=== PATIENT | female | born 1955 | race Caucasian/White ===

== ENCOUNTER 2018-01-03 14:27 | Outpatient (CLI) | payer OTHER ==
--- NOTE | 2018-01-03 14:48 | XRAY Report ---
Procedure Date: 01/03/2018 Accession Number: [id number] / [id number] Procedure: XRS - Chest 2 View X-Ray CPT Code: 88529 FULL RESULT: EXAM: Chest 2 View X-Ray DATE: 01/03/2018 2:40 PM CLINICAL HISTORY: NEW ONSET PAIN IN THE 3 4TH FRONTAL RIB LEFT CHON COMPARISON: None. TECHNIQUE: 2 views. FINDINGS: Lungs/Pleura: No focal opacities evident. No pneumothorax or pleural effusion. Normal volumes. Mediastinum: Heart and mediastinal contours are unremarkable. Other: None. IMPRESSION: Normal 2-view chest radiography. [facility]
== END 2018-01-03 14:28 | disposition home or self-care (01) ==
LOC: DI.S 14:27
PROVIDERS: ATTEND Nurse Practitioner Family
DX: R07.82 Intercostal pain (principal)
CPT/HCPCS: 71046

== ENCOUNTER 2018-01-04 07:28 | Outpatient (CLI) | payer OTHER ==
[2018-01-04 11:15] LABS: BASOPHILS # (AUTO) 0.1 10^3/uL (0.0-0.1); EOSINOPHILS # (AUTO) 0.2 10^3/uL (0.0-0.7); EOSINOPHILS % (AUTO) 4.2 %; HGB - HEMOGLOBIN 13.7 g/dL (12.0-16.0); LYMPHOCYTES # (AUTO) 1.6 10^3/uL (1.5-3.5); LYMPHOCYTES % (AUTO) 36.9 %; MEAN CORPUSCULAR HEMOGLOBIN 32.1 pg (27.0-31.0); MEAN CORPUSCULAR HGB CONC 32.9 g/dL (32.0-36.0); MEAN CORPUSCULAR VOLUME 97.4 fL (81.0-99.0); MEAN PLATELET VOLUME 9.5 fL (7.9-10.8); MONOCYTES # (AUTO) 0.4 10^3/uL (0.0-1.0); MONOCYTES % (AUTO) 10.1 %; NEUTROPHILS # (AUTO) 2.1 10^3/uL (1.5-6.6); NEUTROPHILS % (AUTO) 46.8 %; PLT - PLATELET COUNT 218 10^3/uL (130-450); RED BLOOD COUNT 4.26 10^6/uL (4.20-5.40); RED CELL DISTRIBUTION WIDTH 13.8 % (12.0-15.0); WHITE BLOOD COUNT 4.4 x10^3/uL (4.8-10.8)
[2018-01-04 11:44] LABS: ALBUMIN/GLOBULIN RATIO 1.4 (1.0-2.2); ALKALINE PHOSPHATASE 41 IU/L (42-121); ALT ALANINE AMINOTRANSFERASE 24 IU/L (10-60); AST ASPARTATE AMINOTRANSFERASE 29 IU/L (10-42); BILIRUBIN,TOTAL 1.2 mg/dL (0.2-1.0); BUN - BLOOD UREA NITROGEN 17 mg/dL (6-20); CALCIUM 9.1 mg/dL (8.5-10.3); CARBON DIOXIDE - CO2 27 mmol/L (21-32); CHLORIDE 104 mmol/L (101-111); CHOL/HDL RATIO 2.6 (<4.4); CHOLESTEROL 259 mg/dL; CREATININE 0.8 mg/dL (0.4-1.0); GFR - MDRD 73 (>89); GLUCOSE 96 mg/dL (70-100); HDL CHOLESTEROL 99 mg/dL; LDL CHOLESTEROL,CALCULATED 151 mg/dL; LDL/HDL RATIO 1.5 (<4.4); SODIUM 138 mmol/L (135-145); TOTAL PROTEIN 6.8 g/dL (6.7-8.2); VLDL CHOLESTEROL 9 mg/dL
== END 2018-01-04 07:29 | disposition home or self-care (01) ==
LOC: LAB.F 07:28
PROVIDERS: ATTEND Nurse Practitioner Family
DX: Z00.00 Encounter for general adult medical examination without abnormal findings (principal); E55.9 Vitamin D deficiency, unspecified; E78.5 Hyperlipidemia, unspecified
CPT/HCPCS: 36415; 80053; 80061; 82652; 83721; 85025

== ENCOUNTER 2023-11-01 07:13 | Day surgery (SDC) | payer MEDICARE, BC ==
[2023-11-01] MEDS: LACTATED RINGERS 1,000 ML IV ONE ×2 (07:37→09:04)
[2023-11-01] MEDS: PROPARACAINE 0.5% OPHTH DROPS 15 ML ONE (07:46)
[2023-11-01] MEDS: PHENYLEPHRINE 2.5% OPHTH 2 ML DROPS ONE (07:47)
[2023-11-01] MEDS: KETOROLAC 0.45% OPHTH DROPS ONE (07:49)
--- NOTE | 2023-11-01 07:58 | ANESTHESIA ---
Pre-Anesthesia VS, & Labs - Diagnosis left cataract - Procedure left cataract extraction Vital Signs: Temp Pulse Resp BP Pulse Ox O2 Flow Rate 36.5 C 50 L 14 108/69 100 11/01/23 07:38 11/01/23 07:38 11/01/23 07:38 11/01/23 07:38 11/01/23 07:38 Height: 5 ft 3 in Weight (kg): 61.2 kg Body Mass Index: 23.8 BMI Classification: Normal - NPO >8 hours - Is Patient ?: No Home Medications and Allergies Home Medications: Ambulatory Orders Acyclovir 800 mg PO DAILY 10/31/23 Acyclovir 800 mg PO DAILY 10/31/23 Allergies/Adverse Reactions: Allergies Allergy/AdvReac Type Severity Reaction Status Date / Time NSAIDS (Non-Steroidal Allergy Respiratory Verified 10/31/23 12:15 Anti-Inflamma Anes History & Medical History - Anesthetic History Anesthesia Complications: reports: No previous complications - Medical History Cardiovascular: reports: None Pulmonary: reports: None Gastrointestinal: reports: Colon polyps Urinary: reports: None Musculoskeletal: reports: None Endocrine/Autoimmune: reports: None Skin: reports: Herpes zoster - Surgical History Eyes Ears Nose Throat (EENT): reports: Tonsil/Adenoidectomy Exam General: Alert, Oriented x3 Dental: WNL Mouth Opening: Greater than 4 Fingerbreadths Neck Mobility: Limited Mallampati classification: II Thyromental Distance: greater than 6 cm Respiratory: Lungs clear Cardiovascular: Regular rate Plan Anesthesia Type: MAC Consent for Procedure(s) Verified and Reviewed: Yes Code Status: Attempt Resuscitation ASA classification: 2-Mild systemic disease Is this case an emergency?: No
[2023-11-01] MEDS ORDERED: MIDAZOLAM 2 MG/2 ML VIAL ONE (08:09)
[2023-11-01] MEDS ORDERED: fentaNYL 100 MCG/2 ML VIAL ONE (08:09)
[2023-11-01] MEDS ORDERED: TRIAMCIN/MOXIFLOX OPHTHALMIC 0.6 ML VIAL IO ONE (08:11)
[2023-11-01] MEDS ORDERED: BSS/LIDOCAINE/EPINEPHRINE 1 ML VIAL ONE (08:11)
[2023-11-01] MEDS ORDERED: BRIMONIDINE 0.2% OPHTH DROPS 5 ML ONE (08:11)
[2023-11-01] MEDS ORDERED: EPINEPHrine 1 MG/ML AMP ONE (08:11)
[2023-11-01] MEDS ORDERED: TIMOLOL 0.5% OPHTH DROPS ONE (08:11)
[2023-11-01] MEDS: EPINEPHrine 1 MG/ML AMP IR ONE (08:27)
[2023-11-01] MEDS: BRIMONIDINE 0.2% OPHTH DROPS 5 ML OPTH ONE (08:27)
[2023-11-01] MEDS: VANCOMYCIN OPHTH (TOPICAL) 10 MG/ML SYRINGE TOP ONE (08:28)
[2023-11-01] MEDS: PROPARACAINE 0.5% OPHTH DROPS 15 ML EACHEYE ONE (08:28)
[2023-11-01] MEDS: BSS/LIDOCAINE/EPINEPHRINE 1 ML SYRINGE IO ONE (08:28)
[2023-11-01] MEDS: TIMOLOL 0.5% OPHTH DROPS OPTH ONE (08:28)
[2023-11-01] MEDS: TRIAMCIN/MOXIFLOX OPHTHALMIC 0.6 ML VIAL IO ONE (08:28)
--- NOTE | 2023-11-01 09:05 | OPERATIVE REPORT ---
Operative Report - Other Other Information/Narrative: Date of Surgery: 11/01/23 Preop Dx: Visually significant cataract left eye. This was the first cataract surgery. Postop Dx: Same Procedure: Phacoemulsification with posterior chamber toric intraocular lens implant left eye Surgeon: Dr. Raudel Morales Anesthesia: Monitored anesthesia care Complications: None Operative Indications: This is a 68-year-old F with progressive vision loss in the left eye due to 2+ nuclear sclerotic and 3+ cortical cataract. Best cor rected visual acuity was 20/25 with glare to 20/500 vision in the left eye. Indications for surgery were: - Overall decrease in vision - Difficulty reading - Difficulty seeing words, closed captions, or game scores on TV - Difficulty seeing street signs - Difficulty driving in low light or at night - Difficulty driving at night because of headlights from other vehicles - Difficulty with glare or bright lights in any situation The patient was consented at length concerning the risks and benefits of cataract surgery after which the patient expressed a desire to proceed with surgery. Operative Procedure: The patients cornea was marked in the pre-surgical area to indicate the axis for the toric intraocular lens. The patient was taken into OR#3 and placed under monitored anesthesia care. A surgical time-out was conduc luis alberto confirming correct patient, correct procedure, and correct surgical site. The patient was given topical anesthesia and then prepped and draped in the usual sterile fashion. The eye was entered at the 6 and 3 oclock positions. Intracameral Shugarcaine was injected into the anterior chamber followed by a dispersive viscoelastic. A continuous-tear curvilinear capsulorhexis was performed. The nucleus was hydrodissected and phacoemulsified. The cortex was evacuated using automated infusion and aspiration. A cohesive viscoelastic was injected into the capsular bag and a 26.0 diopter toric intraocular lens was inserted into the bag and rotated to axis 003. Infusion and aspiration were used to evacuate the viscoelastic materials from the eye and the IOL was verified to remain on axis. The wounds were hydrated and the eye inflated to physiologic pressure using balanced salt solution. Approximately 0.25ml of a mixture of triamcinolone and moxifloxacin was injected trans-sclerally into the vitreous in the inferotemporal quadrant using a 30 gauge cannula. An additional 0.25ml of a mixture of triamcinolone and moxifloxacin was injected subconjunctivally in the superior quadrant for infection and inflammation prophylaxis. Wound integrity was checked with Weck-Anahi sponges and the IOL axis was once again verified to be on the correct axis. The patient was taken from the operating room in good condition and given post-op instructions.
[2023-11-01 09:15] VITALS: BP 103/76; O2SAT 96
--- NOTE | 2023-11-01 14:11 | ANESTHESIA POST OP EVALUATION ---
Anesthesia Post Eval - Post Anesthesia Eval Vitals: Last Vital Signs Temp 36.6 C 11/01/23 09:04 Pulse 58 L 11/01/23 09:04 Resp 18 11/01/23 09:04 BP 103/76 11/01/23 09:04 Pulse Ox 96 11/01/23 09:04 O2 Flow Rate CV Function Including HR & BP: Stable Pain Control: Satisfactory Nausea & Vomiting: Negative Mental Status: Baseline Respiratory Status: Airway Patent Hydration Status: Satisfactory Anesthesia Complications: None
== END 2023-11-01 07:14 | disposition home or self-care (01) ==
LOC: SDS 07:13
PROVIDERS: ATTEND Ophthalmology
DX: H25.812 Combined forms of age-related cataract, left eye (principal)
CPT/HCPCS: 66984; A9270; J3490; J7120; V2632; V2787

== ENCOUNTER 2023-12-20 07:51 | Day surgery (SDC) | payer MEDICARE, BC ==
[2023-12-20] MEDS: LACTATED RINGERS 1,000 ML IV ONE ×2 (08:15→09:50)
[2023-12-20] MEDS: CYCLOPENTOLATE 1% OPHTH DROPS 2 ML ONE (08:18)
[2023-12-20] MEDS: PROPARACAINE 0.5% OPHTH DROPS 15 ML ONE (08:18)
[2023-12-20] MEDS: PHENYLEPHRINE 2.5% OPHTH 2 ML DROPS ONE (08:18)
[2023-12-20] MEDS: KETOROLAC 0.45% OPHTH DROPS ONE (08:32)
--- NOTE | 2023-12-20 08:33 | ANESTHESIA ---
Pre-Anesthesia VS, & Labs - Diagnosis R senile combined cataract - Procedure R cataract extraction with IOL Height: 5 ft 3 in Weight (kg): 59.9 kg Body Mass Index: 23.3 BMI Classification: Normal - NPO >8 hours Last Fluid Intake: am prep - Is Patient ?: No - Lab Results Lab results reviewed: Yes Home Medications and Allergies Acyclovir 800 mg PO DAILY 10/31/23 Allergies/Adverse Reactions: Allergies Allergy/AdvReac Type Severity Reaction Status Date / Time NSAIDS (Non-Steroidal Allergy Respiratory Verified 12/20/23 08:37 Anti-Inflamma Anes History & Medical History - Anesthetic History Anesthesia Complications: reports: No previous complications, Slow wake-up (felt like she got too much medication with last cataract. discusssed cutting dose and giving more if needed in the OR) Family history of Anesthesia Complications: Denies Family history of Malignant Hyperthermia: Denies - Medical History Cardiovascular: reports: None Pulmonary: reports: None Gastrointestinal: reports: None Urinary: reports: None Musculoskeletal: reports: None Endocrine/Autoimmune: reports: None Skin: reports: None - Surgical History Eyes Ears Nose Throat (EENT): reports: Cataracts, Tonsil/Adenoidectomy Exam General: Alert, Oriented x3, Cooperative Dental: WNL Mouth Openin Fingerbreadth Neck Mobility: Normal Mallampati classification: II Thyromental Distance: 4-6 cm Respiratory: Lungs clear, Normal breath sounds, No respiratory distress Cardiovascular: Regular rate Neurological: Normal speech Mental/Cognitive Status: Alert/Oriented X3, Normal for patient Cognitive Status: Within normal limits Plan Anesthesia Type: MAC Consent for Procedure(s) Verified and Reviewed: Yes Code Status: Attempt Resuscitation ASA classification: 2-Mild systemic disease Is this case an emergency?: No
[2023-12-20] MEDS ORDERED: BRIMONIDINE 0.2% OPHTH DROPS 5 ML ONE (09:09)
[2023-12-20] MEDS ORDERED: EPINEPHrine 1 MG/ML AMP ONE (09:09)
[2023-12-20] MEDS ORDERED: TIMOLOL 0.5% OPHTH DROPS ONE (09:09)
[2023-12-20] MEDS ORDERED: BSS/LIDOCAINE/EPINEPHRINE 1 ML VIAL ONE (09:09)
[2023-12-20] MEDS ORDERED: TRIAMCIN/MOXIFLOX OPHTHALMIC 0.6 ML VIAL IO ONE (09:09)
[2023-12-20] MEDS: TIMOLOL 0.5% OPHTH DROPS OPTH ONE (09:20)
[2023-12-20] MEDS: BSS/LIDOCAINE/EPINEPHRINE 1 ML SYRINGE IO ONE (09:20)
[2023-12-20] MEDS: BRIMONIDINE 0.2% OPHTH DROPS 5 ML OPTH ONE (09:20)
[2023-12-20] MEDS: EPINEPHrine 1 MG/ML AMP IR ONE (09:20)
[2023-12-20] MEDS: PROPARACAINE 0.5% OPHTH DROPS 15 ML RIGHTEYE ONE (09:21)
[2023-12-20] MEDS ORDERED: MIDAZOLAM 2 MG/2 ML VIAL ONE (09:21)
[2023-12-20] MEDS: VANCOMYCIN OPHTH (TOPICAL) 10 MG/ML SYRINGE TOP ONE (09:21)
[2023-12-20] MEDS: TRIAMCIN/MOXIFLOX OPHTHALMIC 0.6 ML VIAL IO ONE (09:21)
[2023-12-20] MEDS ORDERED: fentaNYL 100 MCG/2 ML VIAL ONE (09:35)
--- NOTE | 2023-12-20 09:54 | OPERATIVE REPORT ---
Operative Report - Other Other Information/Narrative: Date of Surgery: 12/20/23 Preop Dx: Visually significant cataract right eye. Cataract surgery was performed in the left eye on [id number]. Postop Dx: Same Procedure: Phacoemulsification with posterior chamber toric intraocular lens implant right eye Surgeon: Dr. Raudel Morales Anesthesia: Monitored anesthesia care Complications: None Operative Indications: This is a 68-year-old F with progressive vision loss in the right eye due to 2+ nuclear sclerotic and 2+ cortical cataract. Best corrected visual acuity was 20/20 with glare to 20/30 vision in the right eye. Indications for surgery were: - Overall decrease in vision - Difficulty seeing words on a computer screen - Difficulty reading - Difficulty seeing street signs - Difficulty driving in low light or at night - Difficulty driving at night because of headlights from other vehicles - Difficulty with glare or bright lights in any situation The patient was consented at length concerning the risks and benefits of cataract surgery after which the patient expressed a desire to proceed with surgery. Operative Procedure: The patients cornea was marked in the pre-surgical area to indicate the axis for the toric intraocular lens. The patient was taken into OR#3 and placed under monitored anesthesia care. A surgical time-out was conducted confirming correct patient, correct procedure, and correct surgical site. The patient was given topical anesthesia and then prepped and draped in the usual sterile fashion. The eye was entered at the 6 and 3 oclock positions. Intracameral Shugarcaine was injected into the anterior chamber followed by a dispersive viscoelastic. A continuous-tear curvilinear capsulorhexis was performed. The nucleus was hydrodissected and phacoemulsified. The cortex was evacuated using automated infusion and aspiration. A cohesive viscoelastic was injected into the capsular bag and a 26.5 diopter toric intraocular lens was inserted into the bag and rotated to axis 002. Infusion and aspiration were used to evacuate the viscoelastic materials from the eye and the IOL was verified to remain on axis. The wounds were hydrated and the eye inflated to physiologic pressure using balanced salt solution. Approximately 0.25ml of a mixture of triamcinolone and moxifloxacin was injected trans-scleral ly into the vitreous in the inferotemporal quadrant using a 30 gauge cannula. An additional 0.25ml of a mixture of triamcinolone and moxifloxacin was injected subconjunctivally in the superior quadrant for infection and inflammation prophylaxis. Wound integrity was checked with Weck-Anahi sponges and the IOL axis was once again verified to be on the correct axis. The patient was taken from the operating room in good condition and given post-op instructions.
[2023-12-20 10:11] VITALS: BP 92/68; O2SAT 98
--- NOTE | 2023-12-20 10:12 | ANESTHESIA POST OP EVALUATION ---
Anesthesia Post Eval - Post Anesthesia Eval Vitals: Last Vital Signs Temp 36.6 C 12/20/23 10:06 Pulse 58 L 12/20/23 10:06 Resp 16 12/20/23 10:06 BP 92/68 12/20/23 10:06 Pulse Ox 98 12/20/23 10:06 O2 Flow Rate CV Function Including HR & BP: Stable Pain Control: Satisfactory Nausea & Vomiting: Negative Mental Status: Baseline Respiratory Status: Airway Patent Hydration Status: Satisfactory Anesthesia Complications: None
== END 2023-12-20 07:52 | disposition home or self-care (01) ==
LOC: SDS 07:51
PROVIDERS: ATTEND Ophthalmology
DX: H25.811 Combined forms of age-related cataract, right eye (principal); Z98.42 Cataract extraction status, left eye
CPT/HCPCS: 66984; A9270; J3490; J7120; V2632; V2787